=== PATIENT | female | born 1985 | race African-American/Black ===

== ENCOUNTER 2020-02-15 17:25 | Emergency (ER) | payer OTHER, SELFPAY ==
[2020-02-15 17:36] VITALS: BP 133/82; PULSE 88; RESP 18; TEMP 36.8; O2SAT 100
--- NOTE | 2020-02-15 17:44 | ED.GENADULT ---
HPI - General Adult General Chief complaint: Chest Pain Stated complaint: hypertension Time Seen by Provider: 02/15/20 17:44 Source: patient and RN notes reviewed Mode of arrival: ambulatory Limitations: no limitations History of Present Illness HPI narrative: 34-year-old -Congolese female presents with complaints of intermittent mid-chest tightness for the past 1.5 weeks. No chest tightness at this time. Xanax with relief. Exacerbating factors is anxiety. History of Anxiety and ADHD. Noted first episode with financial burden she is currently experiencing. No family history of sudden or cardiac history. Denies radiating pain or diaphoresis. Denies fever or chills. Denies nausea, vomiting, diarrhea, or abdominal pain. Denies leg swelling, long car rides, history of DVT, PE, LE edema, or dizziness. LMP irregular due to rn long term care control treatment. The patient reports she have not been diagnosed with COVID-19. The patient reports she is not waiting for the results of a COVID-19 lab test. Celena says she had a test 2 weeks ago, NEGATIVE results. The patient reports she do not have fever, chills, weakness, or fatigue. The patient reports she do not have a new or worsening cough or shortness of breath. Denies chest pain. The patient reports she do not have any loss of taste, rhinorrhea, congestion, sore throat, nausea, vomiting, abdominal pain, and diarrhea. Tolerating po intake well. Denies recent traveling. Denies concerns for COVID-19 or exposures been home with limited outdoor exposure except for essential household needs, work, and return home. At this time, patient is not suspected of having COVID-19. Some parts of this dictation were generated by voice recognition software and may contain typographical and/or grammatical inaccuracies. Related Data Home Medications Medication Instructions Recorded Confirmed montelukast 10 mg tablet 10 mg PO DAILY 05/08/19 02/15/20 cetirizine 10 mg tablet 10 mg PO DAILY PRN 09/06/19 02/15/20 norethindrone-e.estradiol-iron [Lo 1 tablet PO DAILY 02/15/20 02/15/20 Loestrin Fe] Allergies Allergy/AdvReac Type Severity Reaction Status Date / Time amoxicillin Allergy Severe Anaphylactic Verified 02/15/20 17:48 Shock Penicillins Allergy Severe Anaphylactic Verified 02/15/20 17:48 Shock Review of Systems Review of Systems: Narrative: CONSTITUTIONAL: Denies fever, chills, sweats. EYES: Denies visual changes, redness, discharge. ENT: Denies rhinorrhea, congestion, sore throat, otalgia. CARDIOVASCULAR: Denies chest pain, palpitations, edema. Complains of intermittent mid-chest tightness. RESPIRATORY: Denies dyspnea, wheezing, cough. GASTROINTESTINAL: Denies abdominal pain, nausea, vomiting, diarrhea. GENITOURINARY: Denies dysuria, hematuria, abnormal discharge. SKIN: Denies rash or itching. MUSCULOSKELETAL: Denies acute back pain, joint pain, or myalgia. NEUROLOGIC: Denies numbness or focal weakness. PSYCHIATRIC: Denies anxiety or depression. All other systems reviewed are negative, except as documented in HPI and below. FOR[facility]LY [facility], [facility] Past Medical History Medical History (Updated 02/16/20 @ 00:00 by Judith Daangi) Ankle fracture Attention deficit hyperactivity disorder (ADHD), combined type, moderate Chronic anxiety Chronic depression Chronic migraine without aura Hamstring injury RT hamstring repair History of fracture of left ankle Migraine with aura and without status migrainosus Obesity (BMI 35.0-39.9 without comorbidity) Seasonal allergies Surgical History Surgical History (Updated 02/15/20 @ 18:05 by VERNA Richard) History of adenoidectomy 2007 History of ankle surgery LT 2018 History of tonsillectomy Family History Family History (Updated 02/15/20 @ 18:02 by VERNA Richard) Father Unknown family medical history Mother Seizures Social History Social History (Updated 02/15/20 @ 18:06 by Yusuf
--- NOTE | 2020-02-15 17:52 | ECG_ITS ---
Measurements Intervals [place] Rate: 76 P: 56 HI: 125 QRS: -3 QRSD: 81 T: -4 QT: 390 QTc: 439 Interpretive Statements SINUS RHYTHM EARLY PRECORDIAL R/S TRANSITION BORDERLINE T WAVE ABNORMALITY- INFERIOR LEADS BORDERLINE ECG Electronically Signed On 02-16-2020 8:03:47 CDT by Tarik Devi D.O.
== END 2020-02-15 18:15 | disposition home or self-care (01) ==
PROVIDERS: Emergency Provider Nurse Practitioner Family; PCP Family Medicine
DX: R07.89 Other chest pain (principal); F41.9 Anxiety disorder, unspecified; Z87.891 Personal history of nicotine dependence; E66.9 Obesity, unspecified; Z68.38 Body mass index [BMI] 38.0-38.9, adult
CPT/HCPCS: 93005; 99213; G0463

== ENCOUNTER 2021-03-03 00:21 | Day surgery (SDC) | payer OTHER, SELFPAY ==
[2021-02-21 13:28] VITALS: BMI 34.4
[2021-03-03] MEDS: ACETAMINOPHEN 500 MG TABLET 1000 MG PO (07:01)
[2021-03-03] MEDS: LACTATED RINGERS 1,000 ML 30 ML IV CONT (07:07)
--- NOTE | 2021-03-03 07:16 | WPDHPUPDATE1 ---
History and Physical Update Update Date/Time: 03/03/21 07:16 History and Physical has been reviewed, including an updated exam of the patient. There are NO changes in the patient's condition. Risks, benefits, and alternatives have been discussed and questions answered. Patient agrees to proceed with procedure.
--- NOTE | 2021-03-03 07:16 | PM.HPGS ---
History of Present Illness History of Present Illness Consent: Risks, benefits, and alternatives have been discussed and questions answered. Patient agrees to proceed with procedure. Chief complaint: MENORRHAGIA Narrative: Celena Peters is a 35 year old female with heavy and prolonged cycles starting August of 2020. Patient had an emergency room visit with heavy bleeding and was given oral contraceptives to take in a tapering fashion starting with 4 tablets twice daily and weaning down to 1 tablet daily. Bleeding has continued since that time. It is recommended to proceed with D&C hysteroscopy to further evaluate. Risks of infection, bleeding, perforation, and fluid overload were reviewed. Possible pathology was also discussed. The ultrasound did reveal a fibroid at the fundus but does not describe if this is submucosal. Patient voices understanding and agrees to proceed. Review of Systems Review of Systems: not repeated day of surgery; patient states no changes in status Constitutional: Constitutional: Reports fatigue PMFSH Past Medical History Medical History (Updated 03/03/21 @ 07:22 by Abby Caraballo MD) Ankle fracture Attention deficit hyperactivity disorder (ADHD), combined type, moderate Chronic anxiety Chronic depression Chronic migraine without aura Gastritis determined by endoscopy (08/13/20) GERD (gastroesophageal reflux disease) Hamstring injury RT hamstring repair History of fracture of left ankle Migraine with aura and without status migrainosus Obesity (BMI 35.0-39.9 without comorbidity) Seasonal allergies Uterine fibroid Surgical History Surgical History (Updated 03/03/21 @ 07:20 by Abby Caraballo MD) History of adenoidectomy 2007 History of ankle surgery LT 2018 History of hip surgery 1988 History of tonsillectomy Family History Family History Father Unknown family medical history Mother Seizures Social History Social History Smoking status: Former smoker Tobacco type: cigarettes Second hand tobacco smoke exposure: Yes Smoking end date: 12/05/05 Additional smoking assessment comments: 1 PACK/WEEK <1 YR Alcohol intake: current Drinks per week: 1 Substance use: never Living arrangements: with family Additional living arrangements comments: S.O. Gender identity (if verbalized by the patient): Female Sexual Orientation (if Verbalized by the Patient): Straight or Heterosexual Spiritual care concerns: No Meds Home Medications and Allergies Home Medications Medication Instructions Recorded Confirmed Type cetirizine 10 mg tablet 10 mg PO DAILY PRN #90 tablet 05/13/20 02/21/21 Rx sumatriptan succinate 25 mg tablet 25 mg PO ONCE PRN #10 tablet 07/15/20 02/21/21 Rx L. acidophilus-L. rhamnosus 1 cap PO DAILY 02/21/21 02/21/21 History [Florajen Women] PNV no.[id number] 4 tablet PO DAILY 02/21/21 02/21/21 History [ Gummies] dextroamphetamine-amphetamine 20 mg PO QAM 02/21/21 02/21/21 History diphenhydramine HCl [Benadryl] 25 mg PO Q6H PRN 02/21/21 02/21/21 History lansoprazole [Prevacid] 30 mg PO QAM 02/21/21 02/21/21 History levonorgestrel-ethinyl estrad 1 tablet PO DAILY 02/21/21 02/21/21 History [Vienva] Allergies Allergy/AdvReac Type Severity Reaction Status Date / Time amoxicillin Allergy Severe Anaphylactic Verified 02/21/21 13:19 Shock Penicillins Allergy Severe Anaphylactic Verified 02/21/21 13:19 Shock Exam Const: General: comfortable and no acute distress GI: Inspection: normal to inspection GI Palp: No abdominal tenderness : External Female Exam: normal external appearance Speculum Exam - Vagina: normal appearance of the vagina Speculum Exam - Cervix: normal appearance of the cervix Bimanual exam- vagina & uterus: normal bimanual exam (except ri
--- NOTE | 2021-03-03 07:42 | WPDANESEPPF ---
Anes - Initial Pre Proc Eval Procedure: Operation Date: 03/03/21 08:15 Proposed Procedures p Hysteroscopy Dilation and Curettage, Possible Myosure - Abby Caraballo MD Date/Time: 03/03/21 07:42 Surgeon: Abby Caraballo MD Pre Op Diagnosis: MENORRHAGIA Patient Data Age: 35 Gender: F Height: 1.68 m Weight: 97 kg Allergies Allergy/AdvReac Type Severity Reaction Status Date / Time amoxicillin Allergy Severe Anaphylactic Verified 02/21/21 13:19 Shock Penicillins Allergy Severe Anaphylactic Verified 02/21/21 13:19 Shock Home Medications Medication Instructions Recorded Confirmed Type cetirizine 10 mg tablet 10 mg PO DAILY PRN #90 tablet 05/13/20 02/21/21 Rx sumatriptan succinate 25 mg tablet 25 mg PO ONCE PRN #10 tablet 07/15/20 02/21/21 Rx L. acidophilus-L. rhamnosus 1 cap PO DAILY 02/21/21 02/21/21 History [Florajen Women] PNV no.[id number] 4 tablet PO DAILY 02/21/21 02/21/21 History [ Gummies] dextroamphetamine-amphetamine 20 mg PO QAM 02/21/21 02/21/21 History diphenhydramine HCl [Benadryl] 25 mg PO Q6H PRN 02/21/21 02/21/21 History lansoprazole [Prevacid] 30 mg PO QAM 02/21/21 02/21/21 History levonorgestrel-ethinyl estrad 1 tablet PO DAILY 02/21/21 02/21/21 History [Vienva] Patient hx anesthesia problems: none Family hx anesthesia problems: none Results Review: All pre-operative results and documents have been reviewed as part of the pre-operative evaluation. [facility] Past Medical History Medical History Ankle fracture Attention deficit hyperactivity disorder (ADHD), combined type, moderate Chronic anxiety Chronic depression Chronic migraine without aura Gastritis determined by endoscopy (08/13/20) GERD (gastroesophageal reflux disease) Hamstring injury RT hamstring repair History of fracture of left ankle Migraine with aura and without status migrainosus Obesity (BMI 35.0-39.9 without comorbidity) Seasonal allergies Uterine fibroid Surgical History Surgical History History of adenoidectomy 2007 History of ankle surgery LT 2018 History of hip surgery 1988 History of tonsillectomy Family History Family History Father Unknown family medical history Mother Seizures Social History Social History Smoking status: Former smoker Tobacco type: cigarettes Second hand tobacco smoke exposure: Yes Smoking end date: 12/05/05 Additional smoking assessment comments: 1 PACK/WEEK <1 YR Alcohol intake: current Drinks per week: 1 Substance use: never Living arrangements: with family Additional living arrangements comments: S.O. Gender identity (if verbalized by the patient): Female Sexual Orientation (if Verbalized by the Patient): Straight or Heterosexual Spiritual care concerns: No Anes - Eval Final PreProcedure Day of Procedure 03/03/21 07:42 Patient weight: obese Heart: regular rate and rhythm Lungs: clear to auscultation Airway: Mallampati scale class II Neurological: alert and oriented Last oral intake: >/= 8 hours ASA classification: III Emergent: no Anesthetic plan: proceed Anesthesia type and monitoring: general GIVS and standard monitoring Results Review: All pre-operative results and documents have been reviewed as part of the pre-operative evaluation. Informed Consent: The patient's anesthetic plan and its attendant risks and benefits were discussed with the patient/family/POA. Questions were solicited and answers provided to the satisfaction of the patient/family/POA.
[2021-03-03] MEDS: KETOROLAC 30 MG/ML VIAL (*BKC) IV PUSH (08:41)
--- NOTE | 2021-03-03 08:43 | P.OP_ITS ---
Procedure Note - Detailed Date of Procedure 03/03/21 Pre-op Diagnosis Menorrhagia Post-op Diagnosis same ( plus submucosal fibroid) Procedure Performed D&C hysteroscopy with partial resection of fibroid Surgeon Abby Caraballo MD Anesthesia MAC and local Findings the uterus sounds to 9cm and there is a fibroid on the posterior wall filling approximately half the cavity Description of Procedure The patient was taken to the operating room and placed under anesthesia in the dorsal lithotomy position. She was prepped and draped in usual sterile fashion. Montgomery speculum was placed in the vagina and the cervix is grasped on the anterior lip with a tenaculum. The cervix was serially injected in each quadrant with 1% lidocaine. The uterus is sounded to 9cm and noted to be retroverted. The diagnostic hysteroscope was placed and a fibroid is noted on the posterior wall. The MyoSure device is opened and placed. Very quickly there was a fluid deficit after the 1st L of 500cc. After the 2nd L there is a approximately 900cc fluid deficit therefore no further MyoSure device was used. The myoma graspers are used and 3 a rather large pieces of fibroid are removed. No further pieces are able to be grasped. The hysteroscope was briefly replaced and approximately 1/2 of the fibroid is noted to be removed. The medium sharp curette is then used to sharply curette the endometrium until a good uterine cry was noted in all areas. All instruments are removed. Sponge, needle, and instrument counts are correct per the OR staff. The patient is taken to recovery in stable condition. Estimated Blood Loss 25 Drains No Packing No Pathology yes ( Endometrial curettings and shavings) Complications No immediate complications Condition stable Disposition PACU
[2021-03-03 08:48] VITALS: BP 124/77; PULSE 85; RESP 14; O2SAT 93
[2021-03-03 09:15] VITALS: BP 124/77; PULSE 78; RESP 16
[2021-03-03] MEDS: oxyCODONE HCL (*CRX) 5 MG TAB IR PO (09:18)
[2021-03-03 09:42] VITALS: BP 125/77; PULSE 76; RESP 16
== END 2021-03-03 10:00 | disposition home or self-care (01) ==
PROVIDERS: PCP Family Medicine; Visit Provider Obstetrics & Gynecology Gynecology
PROC: 0U5B8ZZ Destruction of Endometrium, Via Natural or Artificial Opening Endoscopic (ICD-10-PCS; CPT 58563; principal; 2021-03-03 08:15)
DX: N92.0 Excessive and frequent menstruation with regular cycle (principal); D25.0 Submucous leiomyoma of uterus; F41.8 Other specified anxiety disorders; N71.1 Chronic inflammatory disease of uterus; K21.9 Gastro-esophageal reflux disease without esophagitis; Z87.891 Personal history of nicotine dependence; E66.9 Obesity, unspecified; Z68.34 Body mass index [BMI] 34.0-34.9, adult; F90.9 Attention-deficit hyperactivity disorder, unspecified type
CPT/HCPCS: 58561; 88305; A9270; J1885; J2250; J3010; J7030; J7120

== ENCOUNTER 2021-03-23 16:18 | Emergency (ER) | payer OTHER, SELFPAY ==
--- NOTE | 2021-03-23 16:23 | ED.NAVMDI ---
HPI - Nausea/Vomiting/Diarrhea General Chief complaint: Nausea/Vomiting/Diarrhea Stated complaint: Nausea/Vomithing/Diarrhea Time Seen by Provider: 03/23/21 16:23 Source: patient and RN notes reviewed History of Present Illness HPI Narrative: Patient is a 35-year-old female who presents to the urgent care with complaints of nausea, vomiting and diarrhea for the last 3 days. Patient states on day 1 she did have a low-grade fever which resolved quickly. Patient states that she has been taking her normal Pepcid as well as 3 doses of Zofran that she had leftover. Patient states that she vomited once last night but otherwise symptoms have been improving over the last 24 hours. States that she has had about 5-6 loose stools in the last 24 hours. Denies of any abdominal pain. No other acute complaints. No acute distress noted. Patient read the plan of care. Some parts of this dictation were generated by voice recognition software and may contain typographical and/or grammatical inaccuracies. Related Data Home Medications Medication Instructions Recorded Confirmed L. acidophilus-L. rhamnosus 1 cap PO DAILY 02/21/21 03/03/21 [Florajen Women] PNV no.[id number] 4 tablet PO DAILY 02/21/21 03/03/21 [ Gummies] diphenhydramine HCl [Benadryl] 25 mg PO Q6H PRN 02/21/21 03/03/21 lansoprazole [Prevacid] 30 mg PO QAM 02/21/21 03/03/21 levonorgestrel-ethinyl estrad 1 tablet PO DAILY 02/21/21 03/03/21 [Vienva] Allergies Allergy/AdvReac Type Severity Reaction Status Date / Time amoxicillin Allergy Severe Anaphylactic Verified 03/23/21 16:40 Shock Penicillins Allergy Severe Anaphylactic Verified 03/23/21 16:40 Shock Review of Systems Review of Systems: CONSTITUTIONAL: Denies fever, chills, or sweats. EYES: Denies visual changes, redness, or discharge. ENT: Denies rhinorrhea, congestion, sore throat, or otalgia. CARDIOVASCULAR: Denies chest pain, palpitations, or edema. RESPIRATORY: Denies cough or dyspnea. GASTROINTESTINAL: Reports of nausea, vomiting and diarrhea GENITOURINARY: Denies dysuria or hematuria. SKIN: Denies rash or itching. MUSCULOSKELETAL: Denies back pain, joint pain, or myalgia. NEUROLOGIC: Denies headache, numbness, or weakness. All other systems reviewed are negative, except as documented in HPI. [facility] Past Medical History Medical History Ankle fracture Attention deficit hyperactivity disorder (ADHD), combined type, moderate Chronic anxiety Chronic depression Chronic migraine without aura Gastritis determined by endoscopy (08/13/20) GERD (gastroesophageal reflux disease) Hamstring injury RT hamstring repair History of fracture of left ankle Migraine with aura and without status migrainosus Obesity (BMI 35.0-39.9 without comorbidity) Seasonal allergies Uterine fibroid Surgical History Surgical History History of adenoidectomy 2007 History of ankle surgery LT 2018 History of hip surgery 1988 History of tonsillectomy Family History Family History Father Unknown family medical history Mother Seizures Social History Social History (Reviewed 01/20/21 @ 16:07 by Deni Benavides [facility]) Smoking status: Former smoker Tobacco type: cigarettes Second hand tobacco smoke exposure: Yes Smoking end date: 12/05/05 Additional smoking assessment comments: 1 PACK/WEEK <1 YR Alcohol intake: current Drinks per week: 1 Substance use: never Additional living arrangements comments: S.O. Gender identity (if verbalized by the patient): Female Sexual Orientation (if Verbalized by the Patient): Straight or Heterosexual Spiritual care concerns: No Comments At the time of my signature, I reviewed and agree with the nursing past medical, surgical, social, and family hi
[2021-03-23 16:29] VITALS: BP 120/67; PULSE 93; RESP 16; TEMP 36.8; O2SAT 100
== END 2021-03-23 16:52 | disposition home or self-care (01) ==
PROVIDERS: Emergency Provider Nurse Practitioner Family
DX: K52.9 Noninfective gastroenteritis and colitis, unspecified (principal); Z87.891 Personal history of nicotine dependence; K21.9 Gastro-esophageal reflux disease without esophagitis; E66.9 Obesity, unspecified; Z68.33 Body mass index [BMI] 33.0-33.9, adult
CPT/HCPCS: 99213; G0463

== ENCOUNTER 2021-04-11 03:03 | Day surgery (SDC) | payer OTHER, SELFPAY ==
[2021-04-10 14:36] VITALS: BMI 33.7
--- NOTE | 2021-04-10 14:46 | PC.NURSE ---
Report to the Outpatient Waiting Room, entrance under the green pavilion located off [facility], at time 1100 on date 04/11/21. OR Time: 1300 - You and your visitor will be asked a series of questions to screen for COVID 19 for your protection. - A mask is required within the hospital. - Only one visitor is allowed at this time. Patient visitors will be guided where to wait when not with patient. Preoperative COVID Testing Requirements: No COVID Test needed if: (proof is required; if not received patient will have Rapid Test prior to entry) - Patient has received COVID Vaccine at least 14 days prior to procedure date or - Patient has positive COVID test result within last 90 days of surgery date. COVID Test needed if above criteria is not met If not COVID vaccinated a COVID test must be conducted within 72 hours of surgery and patient is asked to isolate self from time of testing until procedure. You will go to the [employer] [facility] for your COVID testing. The [employer] [facility] is located at the corner of [address] [facility]. You will only be called if COVID results are positive and your surgeon may reschedule your elective surgery date. Patients may have clear liquids (water, carbonated beverages, clear teas, apple juice) until 3 hours prior to surgery with a maximum of 20 ounces. - No food from midnight until time of surgery - Infants may have breast milk until 4 hours before surgery, infant formula 6 hours prior to surgery. - Children will be allowed to drink immediately following surgery. If applicable, please bring a bottle or sippy cup to assist with drinking. Juice, water, soda, and popsicles are readily available. For infants on formula, please bring formula the day of surgery. Pacifiers are allowed. Take the following medications with a SIP of water the morning of surgery: ADDERALL, CONTROL PILL Medications to discontinue per physician VITAMINS/SUPPLEMENTS Date to take last dose 3 DAYS PRE-OP Please no make-up, nail arabic, hairspray, perfume, deodorant, or body powder the day of surgery. No jewelry (including any body piercings) or valuables the day of surgery, leave them at home. Please take a shower or bath the night before, or the morning of, surgery with an antibacterial soap. Wear comfortable, loose fitting clothing. Children are encouraged to wear pajamas. - Jewelry must be removed prior to entering the operating room. Rings and piercings that are not removed may be cut off. - The hospital will not accept responsibility for valuables. - Please leave all valuables, including medications, at home the day of surgery. If you are going home after surgery, a licensed warehouse delivery driver must drive you home. - NO public transportation without another adult. - We recommend that an adult stay with you for 24 hours following discharge. - We also recommend that you do not drive, make important decision, drink alcoholic beverages, or take any drugs that were not prescribed by your health care provider for at least 24 hours after your discharge time. For Pediatric surgeries, we recommend two adults accompany the child home (only one inside the building at this time). Follow any additional instructions given to you from your surgeon. Telephone instructions given to SHARIF RATLIFF and asked if any additional questions and then verbalized understanding. Patient advised to call surgeon office or pre surgery nurse liaison [phone] if any additional questions.
--- NOTE | 2021-04-11 09:30 | WPDANESEPPF ---
Anes - Initial Pre Proc Eval Procedure: Operation Date: 04/11/21 13:00 Proposed Procedures p Hysteroscopy with Myosure - Abby Caraballo MD <Jose Mckee MD - Last Filed: 04/14/21 06:45> Date/Time: 04/11/21 09:30 <Jose Mckee MD - Last Filed: 04/14/21 06:45> Surgeon: Abby Caraballo MD <Jose Mckee MD - Last Filed: 04/14/21 06:45> Pre Op Diagnosis: fibroid <Jose Mckee MD - Last Filed: 04/14/21 06:45> Patient Data Age: 36 Gender: F Height: 1.68 m Weight: 95 kg <Jose Mckee MD - Last Filed: 04/14/21 06:45> Allergies Allergy/AdvReac Type Severity Reaction Status Date / Time amoxicillin Allergy Severe Anaphylactic Verified 04/10/21 14:34 Shock Penicillins Allergy Severe Anaphylactic Verified 04/10/21 14:34 Shock <Jose Mckee MD - Last Filed: 04/14/21 06:45> Home Medications Medication Instructions Recorded Confirmed Type cetirizine 10 mg tablet 10 mg PO DAILY PRN #90 tablet 05/13/20 04/10/21 Rx sumatriptan succinate 25 mg tablet 25 mg PO ONCE PRN #10 tablet 07/15/20 04/10/21 Rx L. acidophilus-L. rhamnosus 1 cap PO DAILY 02/21/21 04/10/21 History [Florajen Women] diphenhydramine HCl [Benadryl] 25 mg PO Q6H PRN 02/21/21 04/10/21 History lansoprazole [Prevacid] 30 mg PO QAM 02/21/21 04/10/21 History levonorgestrel-ethinyl estrad 1 tablet PO HS 02/21/21 04/10/21 History [Vienva] dextroamphetamine-amphetamine ER 20 mg PO QAM #30 cap 04/02/21 04/10/21 Rx 20 mg 24hr capsule,extend release <Jose Mckee MD - Last Filed: 04/14/21 06:45> Patient hx anesthesia problems: none <Keith Pendleton MD - Last Filed: 04/11/21 12:39> Family hx anesthesia problems: none <Keith Pendleton MD - Last Filed: 04/11/21 12:39> Results Review: All pre-operative results and documents have been reviewed as part of the pre-operative evaluation. <Jose Mckee MD - Last Filed: 04/14/21 06:45> [facility] Past Medical History Medical History: Medical History Ankle fracture Attention deficit hyperactivity disorder (ADHD), combined type, moderate Chronic anxiety Chronic depression Chronic migraine without aura Gastritis determined by endoscopy (08/13/20) GERD (gastroesophageal reflux disease) Hamstring injury RT hamstring repair History of fracture of left ankle Migraine with aura and without status migrainosus Obesity (BMI 35.0-39.9 without comorbidity) Seasonal allergies Uterine fibroid <Jose Mckee MD - Last Filed: 04/14/21 06:45> Surgical History Surgical History: Surgical History History of adenoidectomy 2007 History of ankle surgery 2017 History of hip surgery 1987 History of hysteroscopy With partial resection of fibroid February 2021 History of tonsillectomy <Jose Mckee MD - Last Filed: 04/14/21 06:45> Family History Family History: Family History Father Unknown family medical history Mother Seizures <Jose Mckee MD - Last Filed: 04/14/21 06:45> Social History Social History: Social History Smoking status: Never smoker Tobacco type: cigarettes Second hand tobacco smoke exposure: Yes Smoking end date: 12/05/05 Additional smoking assessment comments: 1 PACK/WEEK <1 YR Alcohol intake: current Drinks per week: 1 Alcohol use details: 1/MONTH Substance use: never Substance use type: does not use Living arrangements: with family Additional living arrangements comments: S.O. Gender identity (if verbalized by the patient): Female Sexual Orientation (if Verbalized by the Patient): Straight or Heterosexual Spiritual care concerns: No <Jose Mckee MD - Last Filed
--- NOTE | 2021-04-11 12:02 | WPDHPUPDATE1 ---
History and Physical Update Update Date/Time: 04/11/21 12:02 History and Physical has been reviewed, including an updated exam of the patient. There are NO changes in the patient's condition. Risks, benefits, and alternatives have been discussed and questions answered. Patient agrees to proceed with procedure.
--- NOTE | 2021-04-11 12:02 | PM.HPGS ---
History of Present Illness History of Present Illness Consent: Risks, benefits, and alternatives have been discussed and questions answered. Patient agrees to proceed with procedure. Chief complaint: fibroid Narrative: Celena Peters is a 36 year old female with menorrhagia caused by a known large submucosal fibroid. Patient previously underwent hysteroscopic resection of approximately half of the fibroid when fluid imbalance occurred and the procedure had to be stopped. Plan is to proceed today with removal of the remainder of the fibroid. Risks of infection, bleeding, perforation, and fluid imbalance were reviewed. Patient voiced understanding and agrees to proceed. Review of Systems Review of Systems: not repeated day of surgery; patient states no changes in status Genitourinary: Genitourinary: Reports other (Continuous spotting) [facility] Past Medical History Medical History (Updated 04/11/21 @ 12:05 by Abby Caraballo MD) Ankle fracture Attention deficit hyperactivity disorder (ADHD), combined type, moderate Chronic anxiety Chronic depression Chronic migraine without aura Gastritis determined by endoscopy (08/13/20) GERD (gastroesophageal reflux disease) Hamstring injury RT hamstring repair History of fracture of left ankle Migraine with aura and without status migrainosus Obesity (BMI 35.0-39.9 without comorbidity) Seasonal allergies Uterine fibroid Surgical History Surgical History (Updated 04/11/21 @ 12:04 by Abby Caraballo MD) History of adenoidectomy 2007 History of ankle surgery 2017 History of hip surgery 1987 History of hysteroscopy With partial resection of fibroid February 2021 History of tonsillectomy Family History Family History Father Unknown family medical history Mother Seizures Social History Social History Smoking status: Never smoker Tobacco type: cigarettes Second hand tobacco smoke exposure: Yes Smoking end date: 12/05/05 Additional smoking assessment comments: 1 PACK/WEEK <1 YR Alcohol intake: current Drinks per week: 1 Alcohol use details: 1/MONTH Substance use: never Substance use type: does not use Living arrangements: with family Additional living arrangements comments: S.O. Gender identity (if verbalized by the patient): Female Sexual Orientation (if Verbalized by the Patient): Straight or Heterosexual Spiritual care concerns: No Meds Home Medications and Allergies Home Medications Medication Instructions Recorded Confirmed Type cetirizine 10 mg tablet 10 mg PO DAILY PRN #90 tablet 05/13/20 04/10/21 Rx sumatriptan succinate 25 mg tablet 25 mg PO ONCE PRN #10 tablet 07/15/20 04/10/21 Rx L. acidophilus-L. rhamnosus 1 cap PO DAILY 02/21/21 04/10/21 History [Florajen Women] diphenhydramine HCl [Benadryl] 25 mg PO Q6H PRN 02/21/21 04/10/21 History lansoprazole [Prevacid] 30 mg PO QAM 02/21/21 04/10/21 History levonorgestrel-ethinyl estrad 1 tablet PO HS 02/21/21 04/10/21 History [Vienva] dextroamphetamine-amphetamine ER 20 mg PO QAM #30 cap 04/02/21 04/10/21 Rx 20 mg 24hr capsule,extend release Allergies Allergy/AdvReac Type Severity Reaction Status Date / Time amoxicillin Allergy Severe Anaphylactic Verified 04/10/21 14:34 Shock Penicillins Allergy Severe Anaphylactic Verified 04/10/21 14:34 Shock Exam Const: General: healthy appearing and alert Orientation/consciousness: patient oriented x3 Resp: Effort & Inspection: normal respiratory effort Auscultation: clear to auscultation bilaterally Cardio: Rate: regular rate Rhythm: regular rhythm GI: GI Palp: Yes Soft to palpation, No Tenderness to palpation present (GI) and No Palpable mass present : External Female Exam: normal external appearance Speculum Exam - Vagina: normal appearance of
[2021-04-11 12:05] VITALS: BP 142/84; PULSE 100; RESP 14; TEMP 36.4; O2SAT 100
[2021-04-11] MEDS: LACTATED RINGERS 1,000 ML 30 ML IV CONT (12:09)
[2021-04-11] MEDS: ACETAMINOPHEN 500 MG TABLET 1000 MG PO (12:09)
--- NOTE | 2021-04-11 13:53 | W.PM.PROC2 ---
Procedure Note - Detailed Date of Procedure 04/11/21 Pre-op Diagnosis fibroid Post-op Diagnosis same Procedure Performed Hysteroscopic myomectomy with MyoSure Surgeon Abby Caraballo MD Anesthesia MAC and local Findings Uterus sounds to 8cm. Fibroid noted in the lower right mid fundus filling approximately 1/4 of the cavity Description of Procedure The patient was taken to the operating room and placed under anesthesia in the dorsal lithotomy position. She was prepped and draped in the usual sterile fashion. The bivalve speculum was placed in the vagina, the cervix is grasped on the anterior lip with a tenaculum, the cervix is injected in each quadrant with 1% lidocaine, and the uterus sounded to 8cm. The cervix is serially dilated to an 8 Hegar. The MyoSure camera is placed and there was good visualization of the posterior fibroid. The extra-large MyoSure device was opened and placed under direct visualization the MyoSure was utilized however approximately every 2seconds the device stopped. After troubleshooting and opening a 2nd device that was doing the same thing it was determined that the foot pedal was faulty and had a short. The 2nd device that was opened was a normal-sized MyoSure. Using this device the fibroid was removed until it was flat with the posterior wall. There was some shagginess to the appearance and as the fluid imbalance was [id number] decision was made to remove additional pieces with the myoma graspers. The hysteroscope was replaced and the myoma is noted to be flat with the posterior wall. All instruments were then removed the and the patient awakened from anesthesia and taken to recovery in stable condition. Sponge, needle, and instrument counts are correct per the OR staff. There is a [id number] deficit as some fluid did land on the floor due to leaking. Estimated Blood Loss 50 Drains No Packing No Pathology yes (MyoSure shavings) Complications No immediate complications Condition stable Disposition PACU
[2021-04-11 13:55] VITALS: BP 143/96; PULSE 98; RESP 16; O2SAT 100
[2021-04-11] MEDS: fentaNYL CITRATE INJ (*CRX) 100 MCG/2 ML VIAL 25 MCG IV PUSH ×4 (14:03→14:17)
[2021-04-11 14:25] VITALS: BP 133/78; PULSE 79; RESP 16
[2021-04-11] MEDS: oxyCODONE HCL (*CRX) 5 MG TAB IR PO (14:54)
[2021-04-11 14:55] VITALS: BP 129/77; PULSE 74; RESP 16
[2021-04-11 15:20] VITALS: BP 126/69; PULSE 90; RESP 16
== END 2021-04-11 15:40 | disposition home or self-care (01) ==
PROVIDERS: PCP Family Medicine; Visit Provider Obstetrics & Gynecology Gynecology
PROC: 0U5B8ZZ Destruction of Endometrium, Via Natural or Artificial Opening Endoscopic (ICD-10-PCS; CPT 58563; principal; 2021-04-11 13:00)
DX: D25.0 Submucous leiomyoma of uterus (principal); F90.9 Attention-deficit hyperactivity disorder, unspecified type; F41.8 Other specified anxiety disorders; K21.9 Gastro-esophageal reflux disease without esophagitis; K29.70 Gastritis, unspecified, without bleeding; Z87.891 Personal history of nicotine dependence
CPT/HCPCS: 58561; 88305; A9270; J1100; J2250; J2405; J2704; J3010; J7030; J7120

== ENCOUNTER 2023-01-24 09:23 | Emergency (ER) | payer OTHER, SELFPAY ==
[2023-01-24 09:30] VITALS: BP 127/87; PULSE 92; RESP 20; TEMP 36.7; O2SAT 100
--- NOTE | 2023-01-24 09:32 | ED.DENTAL ---
HPI - Dental/Oral General Chief complaint: Dental/Oral Stated complaint: tooth pain Source: patient, family and RN notes reviewed History of Present Illness HPI Narrative: 37 yo F presents to urgent care with visitor at side. Pt states she has had a toothache for the last couple weeks but the toothache worsened yesterday. Pt states she has had a broken tooth in this spot for quite some time but hasn't given her any issues. Denies any fevers, chills, or vomiting. Pt states she completed a 10 day course of Clindamycin about 2-3 weeks ago for this with minimal relief. Pt states she has taken ibuprofen, aspirin, Tylenol, and Oragel in the last 24 hours with no relief. Pt does have a dentist. Pt is scheduled to have carpal tunnel release surgery on Wednesday. Related Data Home Medications Medication Instructions Recorded Confirmed Lactobacillus acidophilus and 1 cap PO DAILY 02/21/21 01/24/23 rhamnosus 15 billion cell capsule (Florajen Women) diphenhydramine HCl 25 mg capsule 25 mg PO Q6H PRN Allergy Symptoms 02/21/21 01/18/23 (Benadryl) riboflavin (vitamin B2) 100 mg 100 mg PO DAILY 07/21/21 01/24/23 tablet levonorgestrel 21 mcg/24 hours (8 1 device intrauterine ONCE 10/16/21 01/24/23 yrs) 52 mg intrauterine device (Mirena) magnesium oxide 400 mg (241.3 mg 400 mg PO DAILY 07/23/22 01/24/23 magnesium) tablet Allergies Allergy/AdvReac Type Severity Reaction Status Date / Time amoxicillin Allergy Severe Anaphylactic Verified 01/24/23 09:37 Shock Penicillins Allergy Severe Anaphylactic Verified 01/24/23 09:37 Shock Review of Systems Review of Systems: CONSTITUTIONAL: Denies fever, chills, or sweats. EYES: Denies visual changes, redness, or discharge. ENT: Denies otalgia and sore throat. Right upper tooth pain CARDIOVASCULAR: Denies chest pain, palpitations, or edema. RESPIRATORY: Denies cough or dyspnea. GASTROINTESTINAL: Denies abdominal pain, nausea, vomiting, or diarrhea. GENITOURINARY: Denies dysuria or hematuria. SKIN: Denies rash or itching. MUSCULOSKELETAL: Denies back pain, joint pain, or myalgia. NEUROLOGIC: Denies headache, numbness, or weakness. Pertinent positives per HPI. [facility] Past Medical History Medical History (Updated 01/24/23 @ 09:52 by Licha Stephens APRN) Ankle fracture Attention deficit hyperactivity disorder (ADHD), combined type, moderate BMI 32.0-32.9,adult BMI 34.0-34.9,adult BMI 35.0-35.9,adult Chronic anxiety Chronic depression Chronic migraine without aura Constipation Encounter for wellness examination in adult Gastritis determined by endoscopy (08/13/20) GERD (gastroesophageal reflux disease) Hamstring injury RT hamstring repair History of fracture of left ankle Hypersomnia Irritable bowel syndrome with mixed bowel habits Low iron Migraine with aura and without status migrainosus Obesity (BMI 30-39.9) Obesity (BMI 35.0-39.9 without comorbidity) Seasonal allergies Uterine fibroid Surgical History Surgical History History of adenoidectomy 2007 History of ankle surgery 2017 History of hip surgery 1988 History of hysteroscopy With partial resection of fibroid February 2021 History of tonsillectomy Family History Family History Father Unknown family medical history Mother Seizures Social History Social History (Updated 01/18/23 @ 15:20 by Marlin Macario MA) Smoking status: Former smoker Second hand tobacco smoke exposure: Yes Smoking end date: 12/05/05 Additional smoking assessment comments: 1 PACK/WEEK <1 YR Alcohol intake: current Drinks per week: 1 Alcohol use details: 1/MONTH Substance use: never Substance use type: does not use Lack of Transportation: No Lack of Food: Never True Current Housing: I Have Housing Concerned About Future Housing: No Dif
== END 2023-01-24 09:50 | disposition home or self-care (01) ==
PROVIDERS: Emergency Provider Nurse Practitioner Family; PCP Family Medicine
DX: K08.89 Other specified disorders of teeth and supporting structures (principal); Z87.891 Personal history of nicotine dependence; K21.9 Gastro-esophageal reflux disease without esophagitis; F41.9 Anxiety disorder, unspecified; F32.A Depression, unspecified; F90.9 Attention-deficit hyperactivity disorder, unspecified type
CPT/HCPCS: 99213; G0463

== ENCOUNTER 2024-01-31 07:30 | Day surgery (SDC) | payer OTHER, SELFPAY ==
[2023-12-23 08:02] VITALS: BMI 33.3
[2024-01-17 08:43] VITALS: BMI 31.8
--- NOTE | 2024-01-25 12:13 | PM.HPGS ---
History of Present Illness History of Present Illness Consent: Risks, benefits, and alternatives have been discussed and questions answered. Patient agrees to proceed with procedure. Chief complaint: Upper Abdominal Pain Narrative: Celena Peters is a 38 year old female who continues to have some epigastric pain and tenderness which is intermittently worse despite using Protonix 40 mg daily. Review of Systems Review of Systems: All systems reviewed & are unremarkable except as noted in HPI and below PMFSH Past Medical History Medical History Abdominal pain (12/14/23) Ankle fracture Attention deficit hyperactivity disorder (ADHD), combined type, moderate BMI 32.0-32.9,adult BMI 33.0-33.9,adult BMI 34.0-34.9,adult BMI 35.0-35.9,adult Carpal tunnel syndrome on both sides (~2022) bilateral carpal tunnel syndrome release on 01/26/2023. Chronic anxiety TSH 0.92, free T4 1.39 on 12/15/2023. Chronic depression Chronic migraine without aura Constipation Elevated fasting glucose (12/15/23) fasting glucose 103 with hemoglobin A1c 5.4 on 12/15/2023. Encounter for wellness examination in adult Gastritis determined by endoscopy (08/13/20) GERD (gastroesophageal reflux disease) Hamstring injury RT hamstring repair History of fracture of left ankle Hypersomnia Irritable bowel syndrome with mixed bowel habits Low iron Iron 166 with hemoglobin 12.0, vitamin B12 690, folic acid 20 on 12/15/2023 Migraine with aura and without status migrainosus Nausea and vomiting Obesity (BMI 30-39.9) Obesity (BMI 35.0-39.9 without comorbidity) Seasonal allergies Uterine fibroid Surgical History Surgical History History of adenoidectomy 2007 History of ankle surgery LT 2017 History of carpal tunnel release right side january 2023 History of hip surgery 1988 History of hysteroscopy With partial resection of fibroid February 2021 History of tonsillectomy Family History Family History Father Unknown family medical history Mother Seizures Social History Social History Years smoked: 1 Smoking status: Current some day smoker Tobacco type: e-cigarettes/vaping Second hand tobacco smoke exposure: Yes Smoking end date: 12/05/05 Additional smoking assessment comments: 1 PACK/WEEK <1 YR Alcohol intake: current Drinks per week: 1 Alcohol use details: RARE Substance use: never Substance use type: does not use Lack of Transportation: No Lack of Food: Never True Current Housing: I Have Housing Concerned About Future Housing: No Difficulty Paying Gas/Electric Bills: Decline to Answer Difficulty Paying for Meds: Decline to Answer Currently Unemployed: No Education: Associate Degree Difficulty w/ Childcare or Family Care: No Living arrangements: alone Additional living arrangements comments: S.O. Occupation/Education: occupation Gender identity (if verbalized by the patient): Female Sexual Orientation (if Verbalized by the Patient): Straight or Heterosexual Spiritual care concerns: No Meds Home Medications and Allergies Home Medications Medication Instructions Recorded Confirmed Type cetirizine 10 mg tablet (Zyrtec) 10 mg PO DAILY PRN allergy 05/13/20 01/31/24 Rx symptoms #90 tabs diphenhydramine HCl 25 mg capsule 25 mg PO Q6H PRN Allergy Symptoms 02/21/21 01/31/24 History (Benadryl) magnesium oxide 400 mg (241.3 mg 400 mg PO DAILY 07/23/22 01/31/24 History magnesium) tablet bupropion HCl 300 mg 24 hr tablet, 300 mg PO QAM #30 tabs 06/16/23 01/31/24 Rx extended release (Wellbutrin XL) rimegepant 75 mg disintegrating 75 mg PO ONCE PRN migraine 07/19/23 01/31/24 Rx tablet (Nurtec ODT) headache #2 tabs buspirone 10 mg tablet 10 mg PO
--- NOTE | 2024-01-31 06:55 | WPDANESEPPF ---
Anes - Initial Pre Proc Eval Procedure: Operation Date: 01/31/24 09:30 Proposed Procedures p Esophagogastroduodenoscopy - Michael Roche MD Date/Time: 01/31/24 06:55 Surgeon: Michael Roche MD Pre Op Diagnosis: Upper Abdominal Pain Patient Data Age: 38 Gender: F Height: 1.65 m Weight: 87 kg Allergies Allergy/AdvReac Type Severity Reaction Status Date / Time amoxicillin Allergy Severe Anaphylactic Verified 01/31/24 08:34 Shock Penicillins Allergy Severe Anaphylactic Verified 01/31/24 08:34 Shock Home Medications Medication Instructions Recorded Confirmed Type cetirizine 10 mg tablet (Zyrtec) 10 mg PO DAILY PRN allergy 05/13/20 01/31/24 Rx symptoms #90 tabs diphenhydramine HCl 25 mg capsule 25 mg PO Q6H PRN Allergy Symptoms 02/21/21 01/31/24 History (Benadryl) magnesium oxide 400 mg (241.3 mg 400 mg PO DAILY 07/23/22 01/31/24 History magnesium) tablet bupropion HCl 300 mg 24 hr tablet, 300 mg PO QAM #30 tabs 06/16/23 01/31/24 Rx extended release (Wellbutrin XL) rimegepant 75 mg disintegrating 75 mg PO ONCE PRN migraine 07/19/23 01/31/24 Rx tablet (Nurtec ODT) headache #2 tabs buspirone 10 mg tablet 10 mg PO BID #60 tabs 08/11/23 01/31/24 Rx alprazolam 0.25 mg tablet 0.25 mg PO TID PRN anxiety #60 tabs 09/15/23 01/31/24 Rx sumatriptan succinate 50 mg tablet See Rx Instructions PO .COMPLEX 10/06/23 01/31/24 Rx (Imitrex) #14 tabs dextroamphetamine-amphetamine ER 25 mg PO DAILY #30 caps 12/17/23 01/31/24 Rx 25 mg 24hr capsule,extend release (Adderall XR) ondansetron HCl 4 mg tablet 4 mg PO TID PRN nausea and 12/20/23 01/31/24 Rx vomiting #20 tabs pantoprazole 40 mg tablet,delayed 40 mg PO QAM #90 tabs 01/10/24 01/31/24 Rx release (Protonix) Patient hx anesthesia problems: none Family hx anesthesia problems: none Results Review: All pre-operative results and documents have been reviewed as part of the pre-operative evaluation. [facility] Past Medical History Medical History Abdominal pain (12/14/23) Ankle fracture Attention deficit hyperactivity disorder (ADHD), combined type, moderate BMI 32.0-32.9,adult BMI 33.0-33.9,adult BMI 34.0-34.9,adult BMI 35.0-35.9,adult Carpal tunnel syndrome on both sides (~2022) bilateral carpal tunnel syndrome release on 01/26/2023. Chronic anxiety TSH 0.92, free T4 1.39 on 12/15/2023. Chronic depression Chronic migraine without aura Constipation Elevated fasting glucose (12/15/23) fasting glucose 103 with hemoglobin A1c 5.4 on 12/15/2023. Encounter for wellness examination in adult Gastritis determined by endoscopy (08/13/20) GERD (gastroesophageal reflux disease) Hamstring injury RT hamstring repair History of fracture of left ankle Hypersomnia Irritable bowel syndrome with mixed bowel habits Low iron Iron 166 with hemoglobin 12.0, vitamin B12 690, folic acid 20 on 12/15/2023 Migraine with aura and without status migrainosus Nausea and vomiting Obesity (BMI 30-39.9) Obesity (BMI 35.0-39.9 without comorbidity) Seasonal allergies Uterine fibroid Surgical History Surgical History History of adenoidectomy 2007 History of ankle surgery LT 2017 History of carpal tunnel release right side january 2023 History of hip surgery 1988 History of hysteroscopy With partial resection of fibroid February 2021 History of tonsillectomy Family History Family History Father Unknown family medical history Mother Seizures Social History Social History Years smoked: 1 Smoking status: Current some day smoker Tobacco type: e-cigarettes/vaping Second hand tobacco smoke exposure: Yes Smoking end date: 12/05/05 Additional smoking assessment comments: 1 PACK/WEEK <1 YR Alcoho
[2024-01-31] MEDS: LACTATED RINGERS 1,000 ML 150 ML IV CONT (08:51)
[2024-01-31 08:52] VITALS: BP 129/85; PULSE 95; RESP 18; TEMP 36.8; O2SAT 100; BMI 31.8
[2024-01-31 09:21] VITALS: BP 103/62; PULSE 86; RESP 14; O2SAT 100
[2024-01-31 09:31] VITALS: BP 111/73; PULSE 84; RESP 14; O2SAT 100
[2024-01-31 09:41] VITALS: BP 116/85; PULSE 93; RESP 18; O2SAT 100
--- NOTE | 2024-01-31 11:14 | WPDANESPN ---
Anes - Prog Note Post-Op Date/Time: 01/31/24 11:14 Cardiovascular status: normal Respiratory status: normal Airway patency: baseline Mental status: baseline Post-Op hydration status: normal Vital Signs: Last Vital Signs Temp 36.8 C 01/31/24 08:52 Pulse 93 01/31/24 09:41 Resp 18 01/31/24 09:41 BP 116/85 01/31/24 09:41 Pulse Ox 100 01/31/24 09:41 O2 Del Method Room Air 01/31/24 09:41 Pain Score (VAS): 0 I/O: Intake & Output 01/30/24 01/31/24 01/31/24 23:59 07:59 15:59 Intake Total 150 Balance 150 Post-procedural complaints: none Patient Feedback: Patient satisfied with anesthetic care. Other Findings: Patient vital signs back to baseline. Patient denies nausea and vomiting. Patient's pain under control. Patient OK for discharge.
== END 2024-01-31 10:03 | disposition home or self-care (01) ==
PROVIDERS: PCP Family Medicine; Visit Provider Internal Medicine Gastroenterology
PROC: 0DJ08ZZ Inspection of Upper Intestinal Tract, Via Natural or Artificial Opening Endoscopic (ICD-10-PCS; CPT 43235; principal; 2024-01-31 09:30)
DX: R10.13 Epigastric pain (principal); K31.7 Polyp of stomach and duodenum
CPT/HCPCS: 43239

== ENCOUNTER 2024-02-01 10:43 | Outpatient (NON) | payer OTHER, SELFPAY | END 2024-02-01 10:44 | disposition home or self-care (01) | LOC: ANHLAB 10:44 | PROVIDERS: PCP Family Medicine; Visit Provider Internal Medicine Gastroenterology | DX: K21.9 Gastro-esophageal reflux disease without esophagitis (principal); K31.7 Polyp of stomach and duodenum | CPT/HCPCS: 88305 ==

== ENCOUNTER 2024-05-15 00:36 | Day surgery (SDC) | payer OTHER, SELFPAY ==
[2024-04-28 15:01] VITALS: BMI 34.1
[2024-05-15 11:31] VITALS: BP 128/78; PULSE 95; RESP 20; TEMP 36.3; O2SAT 100
[2024-05-15] MEDS: LACTATED RINGERS 1,000 ML 150 ML IV CONT (11:42)
--- NOTE | 2024-05-15 11:45 | PM.IMHP ---
H&P: HPI History of Present Illness Date/Time: 05/15/24 11:45 Chief Complaint: Rectal bleeding Narrative: this patient has been experiencing intermittent rectal bleeding, bright red type for the past several months. This is not associated with change in bowel habits, abdominal pain, unintentional weight loss. There is no family history of colorectal cancer. He is here for colonoscopy. Review of Systems Review of Systems: All systems reviewed & are unremarkable except as noted in HPI and below PMFSH Past Medical History Medical History Abdominal pain (12/14/23) Ankle fracture Attention deficit hyperactivity disorder (ADHD), combined type, moderate BMI 32.0-32.9,adult BMI 33.0-33.9,adult BMI 34.0-34.9,adult BMI 35.0-35.9,adult Carpal tunnel syndrome on both sides (~2022) bilateral carpal tunnel syndrome release on 01/26/2023. Chronic anxiety TSH 0.92, free T4 1.39 on 12/15/2023. Chronic depression Chronic migraine without aura Constipation Elevated fasting glucose (12/15/23) fasting glucose 103 with hemoglobin A1c 5.4 on 12/15/2023. Encounter for wellness examination in adult Gastritis determined by endoscopy (08/13/20) GERD (gastroesophageal reflux disease) EGD on 01/31/2024 normal with benign appearing gastric polyps, biopsy benign polyp, small bowel biopsy was negative. Hamstring injury RT hamstring repair History of fracture of left ankle Hypersomnia Irritable bowel syndrome with mixed bowel habits Low iron Iron 166 with hemoglobin 12.0, vitamin B12 690, folic acid 20 on 12/15/2023 Migraine with aura and without status migrainosus Nausea and vomiting Obesity (BMI 30-39.9) Obesity (BMI 35.0-39.9 without comorbidity) Seasonal allergies Uterine fibroid Surgical History Surgical History History of adenoidectomy 2007 History of ankle surgery 2017 History of carpal tunnel release right side january 2023 History of hip surgery 1987 History of hysteroscopy With partial resection of fibroid February 2021 History of tonsillectomy Family History Family History Father Unknown family medical history Mother Seizures Social History Social History Years smoked: 2 Smoking status: Former smoker Tobacco type: e-cigarettes/vaping Second hand tobacco smoke exposure: Yes Smoking end date: 12/05/05 Additional smoking assessment comments: 1 PACK/WEEK <1 YR Alcohol intake: current Drinks per week: 2 Alcohol use details: RARE Substance use: never Substance use type: does not use Lack of Transportation: No Lack of Food: Never True Current Housing: I Have Housing Concerned About Future Housing: No Difficulty Paying Gas/Electric Bills: Decline to Answer Difficulty Paying for Meds: Decline to Answer Currently Unemployed: No Education: Associate Degree Difficulty w/ Childcare or Family Care: No Living arrangements: with friend(s) Additional living arrangements comments: S.O. Occupation/Education: occupation Gender identity (if verbalized by the patient): Female Sexual Orientation (if Verbalized by the Patient): Straight or Heterosexual Spiritual care concerns: No Meds Home Medications and Allergies Home Medications Medication Instructions Recorded Confirmed Type cetirizine 10 mg tablet (Zyrtec) 10 mg PO DAILY PRN allergy 05/13/20 05/15/24 Rx symptoms #90 tabs diphenhydramine HCl 25 mg capsule 25 mg PO Q6H PRN Allergy Symptoms 02/21/21 05/15/24 History (Benadryl) magnesium oxide 400 mg (241.3 mg 400 mg PO DAILY 07/23/22 05/15/24 History magnesium) tablet bupropion HCl 300 mg 24 hr tablet, 300 mg PO QAM #30 tabs 06/16/23 05/15/24 Rx extended release (Wellbutrin XL) rimegepant 75 mg disintegrating 75 mg PO ONCE PRN migraine 07/19/23 05/15/24 Rx tablet (Nurtec ODT) headache #2 tabs buspirone 10 mg tablet 10 mg PO BID #60 tabs 08/11/23 05/15/24 Rx ondansetron HCl 4 mg tablet 4 mg PO TID PRN nausea and 12/20/23 05/15/24 Rx vomiting #20 tabs pantoprazole 40 mg tablet,delayed 40 mg PO QAM #90 tabs 01/10/24 05/15/24 Rx release (Protonix) alprazolam 0.25 mg tablet 0.25 mg PO TID PRN anxiety #60 tabs 03/08/24 05/15/24 Rx glycopyrrolate 1 mg tablet 1 mg PO BID-TID PRN Sweating 04/13/24 05/15/24 History (Robinul) norethindrone 1.5 mg-ethinyl 1 tablet PO DAILY 04/13/24 05/15/24 History estradiol 30 mcg(21)/iron 75 mg(7) tablet (Loestrin Fe 1.5/30 (28-Day)) dextroamphetamine-amphetamine ER 30 mg PO QAM #30 caps 04/24/24 05/15/24 Rx 30 mg 24hr capsule,extend release (Adderall XR) sumatriptan succinate 50 mg tablet See Rx Instructions PO .COMPLEX 04/28/24 05/15/24 History (Imitrex) PRN migraines Meryl 180 mg PO DAILY 05/15/24 05/15/24 History Allergies Allergy/AdvReac Type Severity Reaction Status Date / Time amoxicillin Allergy Severe Anaphylactic Verified 05/15/24 11:19 Shock Penicillins Allergy Severe Anaphylactic Verified 05/15/24 11:19 Shock Vital Signs Vital Signs - 24 hr 05/15/24 11:31 Temperature 97.4 F L Pulse Rate 95 Respiratory Rate 20 Blood Pressure 128/78 Pulse Oximetry 100 Oxygen Delivery Room Air Exam Const: General: cooperative and healthy appearing Resp: Effort & Inspection: normal respiratory effort and able to speak in complete sentences Auscultation: clear to auscultation bilaterally Cardio: Rate: regular rate Rhythm: regular rhythm GI: Inspection: normal to inspection GI Palp: No No hepatosplenomegaly present Auscultation: normal bowel sounds Rectal Exam: deferred Skin: General skin exam: normal color Psych: Appearance: grossly normal Mental Status: mental status grossly normal Assessment and Plan Assessment and plan (1) Hematochezia: Code(s): K92.1 - Melena Status: Acute Plan The patient is deemed a good candidate for the procedure. Consent signed. Will proceed.
--- NOTE | 2024-05-15 11:51 | WPDANESEPPF ---
Anes - Initial Pre Proc Eval Procedure: Operation Date: 05/15/24 12:30 Proposed Procedures p Colonoscopy - Nilo Koch MD Date/Time: 05/15/24 11:51 Surgeon: Nilo Koch MD Pre Op Diagnosis: Melena Patient Data Age: 39 Gender: F Height: 1.65 m Weight: 93.8 kg Last Vital Signs Temp 97.4 F L 05/15/24 11:31 Pulse 95 05/15/24 11:31 Resp 20 05/15/24 11:31 BP 128/78 05/15/24 11:31 Pulse Ox 100 05/15/24 11:31 O2 Del Method Room Air 05/15/24 11:31 Allergies Allergy/AdvReac Type Severity Reaction Status Date / Time amoxicillin Allergy Severe Anaphylactic Verified 05/15/24 11:19 Shock Penicillins Allergy Severe Anaphylactic Verified 05/15/24 11:19 Shock Home Medications Medication Instructions Recorded Confirmed Type cetirizine 10 mg tablet (Zyrtec) 10 mg PO DAILY PRN allergy 05/13/20 05/15/24 Rx symptoms #90 tabs diphenhydramine HCl 25 mg capsule 25 mg PO Q6H PRN Allergy Symptoms 02/21/21 05/15/24 History (Benadryl) magnesium oxide 400 mg (241.3 mg 400 mg PO DAILY 07/23/22 05/15/24 History magnesium) tablet bupropion HCl 300 mg 24 hr tablet, 300 mg PO QAM #30 tabs 06/16/23 05/15/24 Rx extended release (Wellbutrin XL) rimegepant 75 mg disintegrating 75 mg PO ONCE PRN migraine 07/19/23 05/15/24 Rx tablet (Nurtec ODT) headache #2 tabs buspirone 10 mg tablet 10 mg PO BID #60 tabs 08/11/23 05/15/24 Rx ondansetron HCl 4 mg tablet 4 mg PO TID PRN nausea and 12/20/23 05/15/24 Rx vomiting #20 tabs pantoprazole 40 mg tablet,delayed 40 mg PO QAM #90 tabs 01/10/24 05/15/24 Rx release (Protonix) alprazolam 0.25 mg tablet 0.25 mg PO TID PRN anxiety #60 tabs 03/08/24 05/15/24 Rx glycopyrrolate 1 mg tablet 1 mg PO BID-TID PRN Sweating 04/13/24 05/15/24 History (Socrates) norethindrone 1.5 mg-ethinyl 1 tablet PO DAILY 04/13/24 05/15/24 History estradiol 30 mcg(21)/iron 75 mg(7) tablet (Loestrin Fe 1.5/30 (28-Day)) dextroamphetamine-amphetamine ER 30 mg PO QAM #30 caps 04/24/24 05/15/24 Rx 30 mg 24hr capsule,extend release (Adderall XR) sumatriptan succinate 50 mg tablet See Rx Instructions PO .COMPLEX 04/28/24 05/15/24 History (Imitrex) PRN migraines Meryl 180 mg PO DAILY 05/15/24 05/15/24 History Patient hx anesthesia problems: none Family hx anesthesia problems: none Results Review: All pre-operative results and documents have been reviewed as part of the pre-operative evaluation. [facility] Past Medical History Medical History Abdominal pain (12/14/23) Ankle fracture Attention deficit hyperactivity disorder (ADHD), combined type, moderate BMI 32.0-32.9,adult BMI 33.0-33.9,adult BMI 34.0-34.9,adult BMI 35.0-35.9,adult Carpal tunnel syndrome on both sides (~2022) bilateral carpal tunnel syndrome release on 01/26/2023. Chronic anxiety TSH 0.92, free T4 1.39 on 12/15/2023. Chronic depression Chronic migraine without aura Constipation Elevated fasting glucose (12/15/23) fasting glucose 103 with hemoglobin A1c 5.4 on 12/15/2023. Encounter for wellness examination in adult Gastritis determined by endoscopy (08/13/20) GERD (gastroesophageal reflux disease) EGD on 01/31/2024 normal with benign appearing gastric polyps, biopsy benign polyp, small bowel biopsy was negative. Hamstring injury RT hamstring repair History of fracture of left ankle Hypersomnia Irritable bowel syndrome with mixed bowel habits Low iron Iron 166 with hemoglobin 12.0, vitamin B12 690, folic acid 20 on 12/15/2023 Migraine with aura and without status migrainosus Nausea and vomiting Obesity (BMI 30-39.9) Obesity (BMI 35.0-39.9 without comorbidity) Seasonal allergies Uterine fibroid Surgical History Surgical History History of adenoidectomy 2007 History of ankle surgery LT 2018 History of carpal tunnel release right side january 2023 History of hip surgery 1987 History of hysteroscopy With partial resection of fibroid February 2021 History of tonsillectomy Family History Family History Father Unknown family medical history Mother Seizures Social History Social History Years smoked: 2 Smoking status: Former smoker Tobacco type: e-cigarettes/vaping Second hand tobacco smoke exposure: Yes Smoking end date: 12/05/05 Additional smoking assessment comments: 1 PACK/WEEK <1 YR Alcohol intake: current Drinks per week: 2 Alcohol use details: RARE Substance use: never Substance use type: does not use Lack of Transportation: No Lack of Food: Never True Current Housing: I Have Housing Concerned About Future Housing: No Difficulty Paying Gas/Electric Bills: Decline to Answer Difficulty Paying for Meds: Decline to Answer Currently Unemployed: No Education: Associate Degree Difficulty w/ Childcare or Family Care: No Living arrangements: with friend(s) Additional living arrangements comments: S.O. Occupation/Education: occupation Gender identity (if verbalized by the patient): Female Sexual Orientation (if Verbalized by the Patient): Straight or Heterosexual Spiritual care concerns: No Anes - Eval Final PreProcedure Day of Procedure 05/15/24 11:51 Patient weight: obese Heart: regular rate and rhythm Lungs: clear to auscultation Airway: Mallampati scale class II Neurological: alert and oriented Last oral intake: >/= 8 hours ASA classification: III Emergent: no Anesthetic plan: proceed Anesthesia type and monitoring: general GIVS and standard monitoring Results Review: All pre-operative results and documents have been reviewed as part of the pre-operative evaluation. Informed Consent: The patient's anesthetic plan and its attendant risks and benefits were discussed with the patient/family/POA. Questions were solicited and answers provided to the satisfaction of the patient/family/POA.
[2024-05-15 12:53] VITALS: BP 101/66; PULSE 89; RESP 26; O2SAT 100
[2024-05-15 13:03] VITALS: BP 112/82; PULSE 91; RESP 17; O2SAT 100
[2024-05-15 13:13] VITALS: BP 115/80; PULSE 87; RESP 14; O2SAT 100
== END 2024-05-15 13:44 | disposition home or self-care (01) ==
PROVIDERS: PCP Family Medicine; Referring Provider Nurse Practitioner Family; Visit Provider Internal Medicine Gastroenterology
PROC: 0DJD8ZZ Inspection of Lower Intestinal Tract, Via Natural or Artificial Opening Endoscopic (ICD-10-PCS; CPT 45378; principal; 2024-05-15 12:30)
DX: K64.0 First degree hemorrhoids (principal); K58.2 Mixed irritable bowel syndrome; E61.1 Iron deficiency; K21.9 Gastro-esophageal reflux disease without esophagitis; F41.9 Anxiety disorder, unspecified; G56.03 Carpal tunnel syndrome, bilateral upper limbs; G47.10 Hypersomnia, unspecified; F32.A Depression, unspecified; G43.709 Chronic migraine without aura, not intractable, without status migrainosus; E66.9 Obesity, unspecified; Z68.34 Body mass index [BMI] 34.0-34.9, adult; Z98.890 Other specified postprocedural states; Z87.891 Personal history of nicotine dependence
CPT/HCPCS: 45378; J2003; J2704; J7120